=== PATIENT | male | born 1955 | race African-American/Black ===

== ENCOUNTER 2016-06-26 09:39 | Inpatient (IN) ==
[2016-06-26] MEDS ORDERED: DUONEB (A & A) INH ONE (10:00)
[2016-06-26] MEDS ORDERED: SOLU-MEDROL IV ONE (10:00)
[2016-06-26 10:17] LABS: MANUAL DIFF NEEDED? NO
[2016-06-26 10:33] LABS: ALLEN TEST YES; BE 19.8 mmoll (-3.0-3.0); BLOOD TYPE ARTERIAL; DRAW SITE R RADIAL; METHB 2.1 % (0.0-1.5); O2(CT) 9.7 mL/dL (15.0-23.0); PO2(98.6) 285 mmHg (60-100); SAMPLE BLOOD; SAO2 99.1 % (95.0-100.0); THB 6.6 g/dL (11.5-17.4); pH(98.6) 7.51 (7.35-7.45)
[2016-06-26 10:35] LABS: MODALITY NRB
[2016-06-26 10:36] LABS: PCO2(98.6) 56 mmHg (35-45)
[2016-06-26 10:43] LABS: BASO% 0.1 % (0.0-0.8); EOS# 0.13 X1000 (0.0-0.7); EOS% 1.2 % (0.0-10.0); HEMATOCRIT 21.8 % (42.0-52.0); HEMOGLOBIN 6.6 g/dL (14.0-18.0); IMM GRAN# 0.07 X1000 (0.0-0.04); IMM GRAN% 0.7 % (0.0-0.5); LYMPH# 1.35 X1000 (1.2-3.4); LYMPH% 12.9 % (20.5-51.1); MCH 31.4 PG (27-31); MCHC 30.3 g/dL (33-37); MCV 103.8 FL (81-99); MONO% 11.5 % (1.7-9.3); MPV 9.1 FL (7.4-10.4); NEUT% 73.6 % (42.2-75.2); PLT 277 X1000 (130-400)
[2016-06-26 10:44] LABS: INR 1.19; PROTIME 12.6 Seconds (9.2-11.7); PTT 30.4 Seconds (22.0-36.0)
[2016-06-26 10:49] LABS: ALBUMIN 2.9 g/dL (3.5-5.0); CALCIUM 8.6 mg/dL (8.8-10.2); POTASSIUM 4.4 mmol/L (3.5-5.1); TOTAL BILIRUBIN 0.39 mg/dL (0.20-1.00); TOTAL PROTEIN 7.7 g/dL (6.3-8.3)
--- NOTE | 2016-06-26 11:15 | PROVIDER DOCUMENTATION ---
This chart was entered by Zara Ni Scribe, acting as scribe for Mary Domingo MD. HPI-Respiratory General - General Stated Complaint: lethargic, SOB Time Seen by Provider: 06/26/16 10:01 Source: family (ex ) Allergies/Adverse Reactions: Patient Allergies Allergy/AdvReac Type Severity Reaction Status Date / Time No Known Allergies Allergy Verified 06/26/16 10:13 Home Medications: Home Medication List Medication Instructions Recorded Confirmed Last Taken Type Allopurinol [Zyloprim] 200 mg PO DAILY 06/26/16 06/26/16 Unknown History Alprazolam [Xanax] 0.5 mg PO HS 06/26/16 06/26/16 Unknown History Calcium Acetate [Phoslo] 667 mg PO TID CC 06/26/16 06/26/16 Unknown History Carvedilol [Coreg] 12.5 mg PO BID 06/26/16 06/26/16 Unknown History Clonidine [Catapres] 0.2 mg PO BID 06/26/16 06/26/16 Unknown History Cyclobenzaprine [Flexeril] 10 mg PO TID 06/26/16 06/26/16 Unknown History Doxepin [Sinequan] 25 mg PO BID 06/26/16 06/26/16 Unknown History Esomeprazole [Nexium] 40 mg PO DAILY 06/26/16 06/26/16 Unknown History Furosemide [Lasix] 40 mg PO BID 06/26/16 06/26/16 Unknown History Meloxicam [Mobic] 15 mg PO DAILY 06/26/16 06/26/16 Unknown History Minoxidil 25 mg PO BID 06/26/16 06/26/16 Unknown History Sodium Bicarbonate 1,300 mg PO BID 06/26/16 06/26/16 Unknown History - History of Present Illness-Resp Nature of Presenting Problem: Pt is 61 y/o M presents to the ED with SOB. Pt's exwife states Pt had kidney cancer and had both kidneys removed. Pt's ex states he is on dialysis. Pt' s ex states was admitted to [facility] for one week recently. Pt's ex states SOB for 2 days. Quality of Pain: reports: tightness Severity in ED: reports: mild Onset/Duration: reports: 2 days ago Timing: reports: still present Exposure: reports: unknown cause Cough Quality/Degree: reports: no cough Episode Frequency: occasional episodes Current Respiratory Medication Therapy: Initiated see nurses note Modifying Factors: improves with: nothing Associated Symptoms: reports: muscle/bodyaches, shortness of breath, other ( lethargic). denies: chest pain/soreness, cough, dizziness, earache, facial pain , fever/chills, flu-like symptoms, headache, heart racing, hurts to breathe, hyperventilating, lightheadedness, nasal congestion, nasal drainage, sinus pain , short of breath, sore throat, sweaty, wheezing Similar Symptoms Previously?: Yes Recently seen or treated by another doctor?: Yes Review of Systems - Adult - REVIEW OF SYSTEMS - ADULT Constitutional: denies: chills, fever Eyes: denies: blurred vision, double vision Ears, Nose, Mouth & Throat: denies: ear pain, nose pain, throat pain Cardiovascular: reports: irregular heart rate (tachy). denies: chest pain, heart murmur Respiratory: reports: shortness of breath. denies: cough, wheezing Gastrointestinal: denies: abdominal pain, diarrhea, poor appetite, vomiting Genitourinary: denies: dysuria, hematuria Musculoskeletal: reports: muscle aches, muscle weakness. denies: bone pain, joint pain, neck pain Integumentary: denies: hives, itching, rash Neurological: denies: dizziness/vertigo, headache/migraines Psychiatric: reports: no symptoms reported Endocrine: reports: no symptoms reported Hematologic/Lymphatic: reports: no symptoms reported Allergic/Immunologic: reports: no symptoms reported All Other Systems: Reviewed and Negative Past History - Adult - PAST MEDICAL HISTORY-ADULT Review of Records: reports: Nursing Assessment Review, Medications Reviewed, Social history reviewed & non-contributory. Major Childhood Illnesses: reports: denies history Cardiovascular: reports: denies history Respiratory: reports: denies history Gastrointestinal: reports: denies history Obstetrical/Gynecological: reports: denies history Genitourinary: reports: cancer (kidney), dialysis, kidney disease Musculoskeletal: reports: denies history Neurological: reports: denies history Endocrine/Immune: reports: denies history Other Conditions: reports: denies history - PRIOR SURGERIES/PROCEDURES Surgical/Procedure History: reports: reviewed, not pertinent - IMMUNIZATION STATUS Childhood Immunizations: See Nurse Assessment Flu Vaccine: See Nurse Assessment - FAMILY HISTORY Family History: reviewed, not pertinent - SOCIAL HISTORY Smoking: denies Substance Use: denies Living Situation: family Physical Exam-General - PHYSICAL EXAM-ADULT Initial Vital Signs Reviewed: Yes - CONSTITUTIONAL General Appearance: mild distress, lethargic, slow to respond. negative: appears well (ill in appearance) - EYES Eyes: PERRL/EOMI, pink conjunctivae - HEAD, EARS, NOSE, MOUTH & THROAT HENMT: normocephalic/atraumatic, moist mucous membranes, normal ENT inspection, TMs normal, pharynx normal - NECK Neck: non-tender, full range of motion, supple, normal inspection - RESPIRATORY Respiratory: chest non-tender, no pleuratic chest pain, no respiratory distress , decreased breath sounds, retractions, increased rate - CARDIOVASCULAR Cardiovascular: normal peripheral pulses, no edema, no gallop, no JVD, no murmur , tachycardia - GASTROINTESTINAL (ABDOMEN) Abdominal Exam: normal bowel sounds, non tender, soft, no organomegaly, no pulsatile mass - LYMPHATIC Lymphatic: no adenopathy - MUSCULOSKELETAL Back Exam: normal inspection, no CVA tenderness, no vertebral tenderness Extremity: normal range of motion, non-tender, normal gait, normal inspection, no pedal edema, no calf tenderness, normal capillary refill, pelvis stable - SKIN Integumentary: normal color, normal turgor, warm/dry - NEUROLOGIC Neurologic: grossly normal - PSYCHIATRIC Psych/Mental Status: other (lethargic) Progress - PLAN OF CARE/RESULTS Progress/Plan/Lab Results: Vital Signs - 8 hr 06/26/16 10:04 06/26/16 10:20 06/26/16 11:59 Temperature 98.0 F Pulse Rate 107 H 102 H 107 H Respiratory Rate 26 H 25 H 19 Blood Pressure 109/63 98/67 O2 Sat by Pulse Oximetry 96 100 06/26/16 12:00 Temperature Pulse Rate 107 H Respiratory Rate 24 Blood Pressure 114/72 O2 Sat by Pulse Oximetry 97 Laboratory Results - last 24 hr 06/26/16 06/26/16 06/26/16 10:05 10:05 10:05 WBC 10.44 RBC 2.10 L Hgb 6.6 L Hct 21.8 L MCV 103.8 H MCH 31.4 H MCHC 30.3 L RDW Std Deviation 15.4 H Plt Count 277 MPV 9.1 Immature Gran % (Auto) 0.7 H Neut % (Auto) 73.6 Lymph % (Auto) 12.9 L Tama % (Auto) 11.5 H Eos % (Auto) 1.2 Baso % (Auto) 0.1 Immature Gran # (Auto) 0.07 H Neut # (Auto) 7.68 H Lymph # (Auto) 1.35 Tama # (Auto) 1.20 H Eos # (Auto) 0.13 Baso # (Auto) 0.01 PT INR PTT (Actin FS) D-Dimer 1.89 H Specimen Type Sample Site pH pCO2 pO2 HCO3 Base Excess Oxyhemoglobin ABG O2 Sat (Calculated) ABG O2 Saturation ABG Carboxyhemoglobin ABG Methemoglobin Garland Test A-a O2 Difference Total Hemoglobin Lactate Liter Flow Blood Gas Modality FiO2 % Sodium 140 Potassium 4.4 Chloride 91 L Carbon Dioxide 37 H Anion Gap 12 BUN 25 H Creatinine 5.8 H Estimated GFR/1.73 m2 12 BUN/Creatinine Ratio 4 Glucose 127 H Calculated Osmolality 285 Calcium 8.6 L Magnesium 2.0 Total Bilirubin 0.39 AST 13 ALT 8 L Alkaline Phosphatase 116 Creatine Kinase 76 Troponin T Iau-L-Vbglpmgjtcg Pept Total Protein 7.7 Albumin 2.9 L Globulin 4.8 Albumin/Globulin Ratio 0.6 Plasma Lactate 06/26/16 06/26/16 06/26/16 10:05 10:05 10:05 WBC RBC Hgb Hct MCV MCH MCHC RDW Std Deviation Plt Count MPV Immature Gran % (Auto) Neut % (Auto) Lymph % (Auto) Tama % (Auto) Eos % (Auto) Baso % (Auto) Immature Gran # (Auto) Neut # (Auto) Lymph # (Auto) Tama # (Auto) Eos # (Auto) Baso # (Auto) PT 12.6 H INR 1.19 PTT (Actin FS) 30.4 D-Dimer Specimen Type Sample Site pH pCO2 pO2 HCO3 Base Excess Oxyhemoglobin ABG O2 Sat (Calculated) ABG O2 Saturation ABG Carboxyhemoglobin ABG Methemoglobin Garland Test A-a O2 Difference Total Hemoglobin Lactate Liter Flow Blood Gas Modality FiO2 % Sodium Potassium Chloride Carbon Dioxide Anion Gap BUN Creatinine Estimated GFR/1.73 m2 BUN/Creatinine Ratio Glucose Calculated Osmolality Calcium Magnesium Total Bilirubin AST ALT Alkaline Phosphatase Creatine Kinase Troponin T 0.387 H* Llp-Y-Eavskczgfar Pept 81528 H Total Protein Albumin Globulin Albumin/Globulin Ratio Plasma Lactate 06/26/16 06/26/16 10:05 10:20 WBC RBC Hgb Hct MCV MCH MCHC RDW Std Deviation Plt Count MPV Immature Gran % (Auto) Neut % (Auto) Lymph % (Auto) Tama % (Auto) Eos % (Auto) Baso % (Auto) Immature Gran # (Auto) Neut # (Auto) Lymph # (Auto) Tama # (Auto) Eos # (Auto) Baso # (Auto) PT INR PTT (Actin FS) D-Dimer Specimen Type ARTERIAL Sample Site R RADIAL pH 7.51 H pCO2 56 H* pO2 285 H HCO3 40.4 H Base Excess 19.8 H Oxyhemoglobin 95.7 ABG O2 Sat (Calculated) 9.7 L ABG O2 Saturation 99.1 ABG Carboxyhemoglobin 1.30 ABG Methemoglobin 2.1 H Garland Test YES A-a O2 Difference 358.0 Total Hemoglobin 6.6 L Lactate 0.70 Liter Flow 15.0 Blood Gas Modality NRB FiO2 % 100.0 Sodium Potassium Chloride Carbon Dioxide Anion Gap BUN Creatinine Estimated GFR/1.73 m2 BUN/Creatinine Ratio Glucose Calculated Osmolality Calcium Magnesium Total Bilirubin AST ALT Alkaline Phosphatase Creatine Kinase Troponin T Aou-V-Qklwgegdqcf Pept Total Protein Albumin Globulin Albumin/Globulin Ratio Plasma Lactate 0.9 Orders Category Date Time Status Cardiac Monitoring DIRECTED Care 06/26/16 10:00 Active Oxygen Therapy- ED Nursing DIRECTED Care 06/26/16 10:00 Active Saline Loc NOW Care 06/26/16 10:00 Active ABD/PELVIS/PULM ARTERIES [CT] Stat Exams 06/26/16 10:00 Draft CHEST-PORTABLE [RAD] Stat Exams 06/26/16 10:00 Completed ABG [RESP] Routine Lab 06/26/16 10:20 Completed BLOOD CULTURE [BLDCUL] Stat Lab 06/26/16 10:08 Results CBC WITH ELECTRONIC DIFF [HEME] Stat Lab 06/26/16 10:05 Completed CK PROFILE [SP CHEM] Stat Lab 06/26/16 10:05 Completed COMPREHENSIVE METABOLIC PANEL [CHEM] Stat Lab 06/26/16 10:05 Completed D-DIMER [CHEM] Stat Lab 06/26/16 10:05 Completed FERRITIN Stat Lab 06/26/16 12:10 Received FOLATE Stat Lab 06/26/16 12:10 Received LACTATE, PLASMA [CHEM] Stat Lab 06/26/16 10:05 Completed MAGNESIUM [CHEM] Stat Lab 06/26/16 10:05 Completed PRO B-NATRIURETIC PEPTIDE Stat Lab 06/26/16 10:05 Completed PROTIME WITH INR [COAG] Stat Lab 06/26/16 10:05 Completed PTT [COAG] Stat Lab 06/26/16 10:05 Completed TOTAL IRON [CHEM] Stat Lab 06/26/16 12:10 Received TROPONIN T Stat Lab 06/26/16 10:05 Completed TYPE & SCREEN [BBK] Stat Lab 06/26/16 10:05 Results UIBC W TOTAL IRON [CHEM] Stat Lab 06/26/16 12:10 Received VITAMIN B12 Routine Lab 06/26/16 12:10 Received Albuterol 2.5MG/Ipratrop 0.5MG [Duoneb (A & A)] Med 06/26/16 10:00 Discontinued 3 ml INH NOW ONE Methylprednisolone Sod Succ [Solu-Medrol] Med 06/26/16 10:00 Discontinued 125 mg IV NOW ONE Aerosol Treatments Routine Oth 06/26/16 10:02 Completed Aerosol Treatments Stat Oth 06/26/16 10:02 Completed EKG [EKG] Stat Ther 06/26/16 10:00 Ordered Result Diagrams: 06/26/16 10:05 06/26/16 10:05 - EKG 1 Time of EKG reading by physician:: 10:34 EKG Read and Signed by:: Mary Domingo EKG Interpretation (*Must complete 3 of following elements*): Abnormal (lateral infarct, age undetermined) Rate: 106 Rhythm: sinus tachycardia Comments: RBBB; left anterior fascicular block; bifascicular block - XRAY 1 XRAY: Bilateral XRAY Study: Chest Impression: Abnormal (minus pneumonia; bilateral pleural effusions, largest on the right) XRAY Interpretation: bilateral consolidations suggesting pulmonary edema plus - CT/MRI 1 CT Study: Abdomen, Pelvis, other (pulm arteries) Impression: Abnormal (mets to lungs and liver; renal cancer) - CONSULTS/PCP/HOSPITALIST Notification #1 *Consult/PCP/Hospitalist*: Dr. Carrasco Time Discussed: 11:55 (Dr. Carrasco accepted admit ) Reason/Comments: Dr. Domingo consulted with Dr. Carrasco about admit of PT Consult Disposition: Admit Departure - Departure Time of Disposition Decision: 11:05 DIAGNOSIS: SOB (shortness of breath), Renal disease, Pleural effusion Anemia Qualifiers: Anemia type: unspecified type Qualified Code(s): D64.9 - Anemia, unspecified Renal cancer Qualifiers: Laterality: unspecified laterality Qualified Code(s): C64.9 - Malignant neoplasm of unspecified kidney, except renal pelvis Disposition: ADMITTED INPATIENT 09 Certified Medical Emergency: Emergent Condition: Stable Additional Freetext Instructions: ED Follow Up Instructions: You have been treated by a care provider in the Emergency Department. These instructions are being provided to you so you can have an understanding of how to care for yourself upon discharge. Upon discharge from the Emergency Department, you are responsible for making arrangements for follow-up care by a physician of your choice. Take all prescribed medications as directed. Return to the Emergency Department immediately for any new or worsening symptoms. You may call the Physician Referral phone number at [phone] to obtain a list of Physicians who are taking new patients. Referrals and Follow-Ups: None,PCP [Primary Care Provider] - This chart was documented by the indicated scribe, (Zara Ni Scribe) and accurately reflects the services I performed and decisions made by me, Mary Domingo MD, as attested by the provider's signature.
--- NOTE | 2016-06-26 11:21 | Diag Imaging Result Document ---
PROCEDURE NAME: CHEST-PORTABLE - 06/26/2016 SINGLE FRONTAL RADIOGRAPH OF THE CHEST: COMPARISON: None available. FINDINGS: Inspiration is suboptimal. There are bilateral pleural effusions. The effusion on the right is largest and appears to be at least moderate in size. Bilateral central and bibasilar infiltrates are noted indicating pulmonary edema and pulmonary venous congestion plus or minus pneumonia. Cardiac silhouette is somewhat obscured by the overlying infiltrates. IMPRESSION: 1. Bilateral consolidations suggesting pulmonary edema plus or minus pneumonia. 2. Bilateral pleural effusions, largest on the right.
--- NOTE | 2016-06-26 12:24 | Diag Imaging Result Document ---
PROCEDURE NAME: ABD/PELVIS/PULM ARTERIES - 06/26/2016 CT PULMONARY ANGIOGRAM WITH INTRAVENOUS CONTRAST: A CT dose reduction protocol was used. COMPARISON: 04/28/2013. FINDINGS: Axial CT images of the chest were obtained after administering intravenous contrast. Coronal MIP images were generated. There is no pulmonary embolism. There is significant cardiomegaly and advanced calcified coronary artery disease. There are numerous large pulmonary masses bilaterally measuring up to 2.8 cm. There is a large loculated fluid collection at the right lung base measuring 19 x 13 cm. This contains some enhancing masses and the right lower lobe. The right lower lobe is collapsed. Otherwise, no significant infiltrates throughout the lungs. There is mild mediastinal adenopathy at the peritracheal and precarinal locations. Bony structures are intact without suspicious findings. IMPRESSION: 1. Numerous pulmonary metastases. 2. Large loculated pleural collection, probably stable ligament effusion at the right lung base. 3. Pleural metastases. CT ABDOMEN AND PELVIS WITH INTRAVENOUS CONTRAST: A CT dose reduction protocol was used. COMPARISON: None. FINDINGS: There has been bilateral nephrectomy. There has also been prostatectomy. There is a small retroperitoneal mass at the right side measuring 3.5 x 2.8 cm, near the right nephrectomy bed. There is also an implant at the posterior right lobe of the liver measuring 3.2 cm. No bowel obstruction or inflammation. Urinary bladder and rectum are normal. Bony structures are intact. IMPRESSION: Bilateral nephrectomies. A mass in the posterior right lobe of the liver and right nephrectomy bed. MTDD
--- NOTE | 2016-06-26 12:39 | EKG Report ---
Test Performed on : 06/26/2016 10:34:29 AM Test Reason : Chest Pain Blood Pressure : / mmHG Vent. Rate : 106 BPM Atrial Rate : 106 BPM P-R Int : 204 ms QRS Dur : 158 ms QT Int : 440 ms P-R-T Axes : -18 -82 090 degrees QTc Int : 584 ms Sinus tachycardia. Right bundle branch block Left anterior fascicular block Bifascicular block Lateral infarct , age undetermined Abnormal ECG When compared with ECG of 26-JUN-2016 09:48, (Unconfirmed) Sinus rhythm. has replaced Wide QRS rhythm. Unconfirmed Result
--- NOTE | 2016-06-26 12:39 | EKG Report ---
Test Performed on : 06/26/2016 09:48:25 AM Test Reason : Chest Pain Blood Pressure : / mmHG Vent. Rate : 108 BPM Atrial Rate : 000 BPM P-R Int : 000 ms QRS Dur : 156 ms QT Int : 440 ms P-R-T Axes : 000 -77 082 degrees QTc Int : 589 ms Wide QRS rhythm. Right bundle branch block Left anterior fascicular block Bifascicular block T wave abnormality, consider lateral ischemia Abnormal ECG When compared with ECG of 26-JUN-2016 09:47, (Unconfirmed) No significant change was found Unconfirmed Result
[2016-06-26 13:11] LABS: IRON SATURATION 29 %; TIBC 150 ug/dL; TOTAL IRON 43 ug/dL (53-167); UNBOUND IRON 107 ug/dL (112-346)
[2016-06-26] MEDS ORDERED: DUONEB (A & A) INH PRN (13:29)
[2016-06-26] MEDS ORDERED: VANCOMYCIN IV PER PHARMACY MISC SCH (13:30)
[2016-06-26] MEDS ORDERED: VANCOMYCIN 1 GM/NS 1 GM/250 ML IVPB IV ONE (14:00)
[2016-06-26] MEDS: VANCOMYCIN 1 GM/NS 1 GM/250 ML IVPB IV SCH (14:00)
--- NOTE | 2016-06-26 14:20 | Diag Imaging Result Document ---
PROCEDURE NAME: HEAD W/O CONTRAST - 06/26/[address]: A CT dose reduction protocol was used. COMPARISON: None. FINDINGS: The ventricles and sulci are normal in size and contour. No intracranial mass or hemorrhage. There is some mild periventricular white matter chronic microvascular disease. There is sinusitis of the sphenoid sinuses. The mastoids and middle ears are clear. The skull is intact. IMPRESSION: 1. Mild chronic microvascular disease. 2. [facility]henoid sinusitis. [facility]
--- NOTE | 2016-06-26 14:26 | HISTORY AND PHYSICAL ---
CHIEF COMPLAINT: Lethargy and shortness of breath. HISTORY OF PRESENT ILLNESS: Mr. Arriaga is an unfortunate 61-year-old male with a history of metastatic renal cell carcinoma with newly diagnosed metastases to the lungs. He also has a history of prostate cancer and has had bilateral nephrectomies and is on hemodialysis followed by Dr. Pena. Over the past 3 days he has become more lethargic per his 's report. The patient has been having increased labored breathing. The patient is a poor historian at this time. History is obtained per discussions with his and chart review. Increased lethargy and shortness of breath brought the patient to the ER and in the ER he had a CT of the chest, abdomen and pelvis done which revealed numerous pulmonary metastases. There was also a large loculated pleural collection. There was a large loculated pleural collection probably stable malignant effusion in the right lung base and pleural metastasis. The abdomen showed bilateral nephrectomies and a mass of the posterior right lobe of the liver and right nephrectomy bed. His laboratory data reveals fairly profound macrocytic anemia, hypercapnic respiratory failure and a troponin elevation as well as a proBNP elevation. On physical exam, the patient is lethargic and has increased labored breathing. He does follow commands and is oriented. Given the constellation of his symptoms, we are going to admit him to the ICU with multiple subspecialty consultations. PAST MEDICAL HISTORY: 1. Metastatic renal cell carcinoma with mets to the lungs and nephrectomy bed. 2. Prostate cancer. 3. ESRD on hemodialysis. 4. Hypertension. 5. GERD. 6. Anxiety and chronic pain. SURGICAL HISTORY: Bilateral nephrectomies, prostatectomy, partial bowel resection secondary to polyps which the patient's family reports were benign, left upper arm fistula. SOCIAL HISTORY: No history of tobacco, alcohol or drug use. His family is at the bedside. FAMILY HISTORY: Noncontributory. REVIEW OF SYSTEMS: A 14 point review of systems obtained and found to be negative with the exception of the HPI. PHYSICAL EXAMINATION: VITAL SIGNS: Blood pressure is 114/72, heart rate 107, respiratory rate 24, O2 saturation 97% on 5 L of nasal cannula. Temperature is 98 degrees. GENERAL: This is a chronically ill-appearing 61-year-old male lying in hospital bed lethargic but in no acute distress. NEUROLOGIC: The patient is somewhat somnolent but opens his eyes to verbal stimulus. His speech pattern is a bit broken and slurred but he answers orientation questions correctly. He follows commands with global weakness but no acute focal deficits. HEENT: Head is atraumatic, normocephalic. His pupils are equal, round, reactive to light. Oral mucosa is dry. Trachea is midline. No JVD. CHEST: Coarse breath sounds heard over the right lung base. LUNGS: Essentially clear to auscultation. Mild increased work of breathing noted. CV: Tachy and regular. S1, S2 is noted. GI: Epigastric tenderness to palpation. Belly is soft and nondistended. Bowel sounds are positive. EXTREMITIES: Trace edema. Pulses palpable but diminished bilaterally. DIAGNOSTIC DATA: CT of the chest, abdomen and pelvis please see HPI. Chest x- ray shows bilateral effusions and pulmonary edema. EKG shows sinus rhythm with a bifascicular block. WBC 10.4, hemoglobin 6.6, hematocrit 21.8, platelet count 277,000. PT 12.6, INR 1.19. ABG on 100% non- rebreather pH 7.51, CO2 56, O2 285, bicarb 40.4. Sodium 140, potassium 4.4, chloride 91, CO2 37. Anion gap 12. BUN 25, creatinine 5.8, glucose 127, calcium 8.6, magnesium 2. Iron 43, TIBC 150%, sat 29, saturating iron binding 107, ferritin 2669. Bilirubin 0.39, AST 13, ALT 8, alkaline phosphatase 116. CK 76, troponin 0.387. ProBNP 11832. Albumin 2.9, lactate is 0.9. B12 353. Folate 5.1. ASSESSMENT/PLAN: 1. Acute hypoxic and hypercapnic respiratory failure: Secondary to likely malignant pleural effusion and lung metastases. He will need a pulmonary consult as well as Nephrology for hemodialysis. Blood cultures have been obtained and we are going to start broad-spectrum antibiotics to include anaerobic coverage for postobstructive pneumonia. We will also add vancomycin. Continue oxygen, ABGs and chest x-rays daily. 2. Metabolic encephalopathy: Likely secondary to increased work of breathing, hypoxia and hypercapnia but would not rule out mets to the brain. We are going to check a CT and MRI of the brain and we will also continue to treat his underlying metabolic issues. 3. Metastatic renal cell carcinoma with mets to the lungs and malignant pleural effusion: Pulmonary has been consulted. He may need a thoracentesis. We will also consult his check and transfer beader, Dr. Taylor Haq. We have added broad-spectrum antibiotics. We will continue aggressive pulmonary toilet. 4. ESRD on hemodialysis: Dr. Pena has been consulted for ESRD management as well as assistance with medical management. 5. Macrocytic anemia: Iron studies show that he is folate deficient, iron deficient and borderline B12 deficient. We are going to transfuse him 2 units of PRBCs now. We are also going to start folate intravenous 1 mg daily. 6. Elevated cardiac enzymes with probable congestive heart failure: Patient denies any overt chest pain. He does have pulmonary edema so he will need a heart failure workup. We are going to check an echocardiogram and trend his cardiac enzymes. We will also consult Cardiology. 7. Severe protein calorie malnutrition: We will consult Dietary. He may need dietary supplementation. 8. Hypertension: Medications are on hold for now as he is borderline hypotensive. 9. DVT prophylaxis will be provided with heparin once head CT is deemed to be negative. Further recommendations to follow. Dictated by GRICELDA Cook for Jone Carrasco MD cc: GRICELDA Cook MD [facility]
[2016-06-26] MEDS: DUONEB (A & A) INH SCH ×3 (14:30→23:11)
[2016-06-26] MEDS ORDERED: HEPARIN IV PRN (14:59)
[2016-06-26] MEDS ORDERED: NS 2,000 ML MISC PRN (14:59)
[2016-06-26] MEDS ORDERED: TIGHT: 0.2 ML/HR MISC PRN (14:59)
[2016-06-26 16:28] LABS: HEMOGLOBIN A1C 4.9 % (4.8-6.0)
--- NOTE | 2016-06-26 18:15 | ECHO REPORT ---
ORDER DATE: 06/26/2016 MEASUREMENTS: Left ventricular end-diastolic diameter 4.6, posterior wall thickness 2.0, left atrium 4.6, aortic root 3.4. SUMMARY: 1. Technically difficult study due to limited acoustic window quality. 2. Minimal sclerosis of aortic valve demonstrated with adequate aortic valve opening evident. Peak instantaneous gradient across aortic valve by Doppler is 23 mmHg with a mean gradient of 12 mmHg. Mild mitral annular calcification is demonstrated. The tricuspid valve is without structural abnormality with mild tricuspid regurgitation. Pulmonic valve is without structural abnormality with trace pulmonic insufficiency. Estimated systolic PA pressure by Doppler is 55-60 mmHg. 3. Normal left ventricular chamber size with moderate to severe concentric left hypertrophy is demonstrated. Estimated left ejection fraction is 65%-70%. No regional wall motion abnormalities are evident. Left atrium is mildly enlarged. Right atrium and right ventricle are of normal size with grossly preserved right ventricular systolic performance. Mild gradient in left ventricular outflow tract of about 10 mmHg demonstrated at rest. 4. No pericardial effusion. 5. Appearance of inferior vena cava suggests normal central venous pressure. CONCLUSIONS: 1. Technically difficult study. 2. Very mild aortic valve sclerosis without stenosis. 3. Mild tricuspid regurgitation with moderate pulmonary hypertension by Doppler. 4. Moderate to severe concentric left hypertrophy with estimated left ejection fraction 65%-70%. 5. Mild systolic gradient in left ventricular outflow tract of 10 mmHg at rest. 6. Mild left atrial enlargement. cc: MD Aung Blevins CRNP
[2016-06-26] MEDS: ZOSYN 3.375 GM/NS 3.375 GM/50 ML IVPB IV SCH (19:35)
[2016-06-26] MEDS: FOLIC ACID 1 MG in NS 50.0 ML IV SCH (20:46)
[2016-06-26] MEDS ORDERED: XANAX PO ONE (21:00)
[2016-06-26] MEDS ORDERED: SODIUM BICARBONATE PO SCH (21:30)
[2016-06-26] MEDS ORDERED: TUMS PO ONE (21:31)
[2016-06-27] MEDS: ZOSYN 3.375 GM/NS 3.375 GM/50 ML IVPB IV SCH ×2 (00:33→06:18)
[2016-06-27] MEDS: DUONEB (A & A) INH SCH ×6 (03:00→23:13)
[2016-06-27 07:55] LABS: HEMATOCRIT 25.4 % (42.0-52.0); HEMOGLOBIN 7.8 g/dL (14.0-18.0); MCH 30.5 PG (27-31); MCHC 30.7 g/dL (33-37); MCV 99.2 FL (81-99); MPV 9.7 FL (7.4-10.4); RBC 2.56 XMIL (4.7-6.1)
[2016-06-27 07:56] LABS: CALCIUM 9.6 mg/dL (8.8-10.2); POTASSIUM 4.5 mmol/L (3.5-5.1)
[2016-06-27 11:16] LABS: INR 1.19; PROTIME 12.6 Seconds (9.2-11.7); PTT 29.4 Seconds (22.0-36.0)
--- NOTE | 2016-06-27 12:37 | CONSULTATION ---
DATE OF CONSULTATION: 06/27/2016 REFERRING PHYSICIAN: Dr. Jone Carrasco. CHIEF COMPLAINT: Shortness of breath and lethargy. HISTORY OF PRESENT ILLNESS: This is 60-year-old male with a history of metastatic renal cell carcinoma and has been recently diagnosed with metastasis to the lungs. Upon assessment, the patient had a complaint of shortness of breath. He has O2 at 4L per nasal cannula with an O2 saturation of 100%. PAST MEDICAL HISTORY: Metastatic renal cell carcinoma with metastasis to the lungs. Prostate cancer. End-stage renal disease, on hemodialysis. GERD. Anxiety. Chronic pain. Hypertension. SURGICAL HISTORY: Bilateral nephrectomies. Prostatectomy. Partial bowel resection secondary to polyps. SOCIAL HISTORY: Denies tobacco, alcohol, and drug use. Family is at bedside. FAMILY HISTORY: Noncontributory. REVIEW OF SYSTEMS: A 10-point review of systems was obtained and the pertinents as listed in the HPI. Otherwise, noncontributory. PHYSICAL EXAMINATION: Vital Signs: Temperature 98.2 degrees, pulse rate 93, respiratory rate 20, blood pressure 161/93, O2 saturation 100% with O2 at 4L/minute. General: Lethargic. No acute distress. Neurologic: Opens eyes and follows commands. Oriented x3. No acute focal deficits. HEENT: Head is atraumatic, normocephalic. Pupils equal, round and reactive to light. Mucosa is pink, warm, dry. Trachea midline. Chest: Coarse breath sounds bilaterally. Lungs: Clear per auscultation. Nonlabored. Cardiovascular: Tachycardia with S1 and S2 auscultated. Gastrointestinal: Bowel sounds present. Soft and nondistended. Extremities: Edema +1. Pulses palpable. DIAGNOSTIC DATA: Head CT: The impression showed mild chronic microvascular disease and sphenoid sinusitis. Echocardiogram: Impression was technically difficulty study. Very mild aortic valve sclerosis without stenosis. Mild tricuspid regurgitation with moderate pulmonary hypertension by Doppler. Moderate to severe concentric left hypertrophy with an estimated left ejection fraction 65% to 70%. Mild systolic gradient in left ventricular outflow tract of 10 mmHg at rest. Mild left atrial enlargement. Chest x-ray: The impression showed bilateral consolidation suggestive of pulmonary edema plus or minus pneumonia. Bilateral pleural effusions, largest on the right. Laboratory data: White blood cells 12.85, red blood cells 2.56, hemoglobin 7.8, hematocrit 25.4, MCV 99.2, MCHC 30.7, RDW standard deviation 18.4. PT 12.6, INR 1.19, PTT 29.4. Sodium 137, potassium 4.5, chloride 94, carbon dioxide 31, anion gap 12, BUN 28, creatinine 5.0, glucose 124. Troponin T 0.279 and proBNP 24,477. ASSESSMENT AND PLAN: 1. Hypoxia with hypercapnia. Continue oxygen and monitor arterial blood gas. 2. End-stage renal disease. Continue current treatment with dialysis. 3. Hypertension. Continue current treatment with regular medication. 4. Gastroesophageal reflux disease. Continue gastrointestinal prophylaxis. 5. Anemia. Continue to monitor and treat accordingly. 6. Continue deep vein thrombosis prophylaxis with heparin. Thank you for the courtesy of this consult. cc: MD Jone Dixon MD
--- NOTE | 2016-06-27 12:52 | PROGRESS NOTE ---
DATE: 06/27/2016 SUBJECTIVE: Today, Mr. Arriaga referred to be doing a whole lot better. He got 2 units of PRBCs during dialysis yesterday. OBJECTIVE: Vital signs: Blood pressure is 151/93, pulse 93, respirations 15, temperature 98.2. General: Mr. Arriaga is a 61-year-old male who was in bed and seems to not be in any remarkable distress. HEENT: Mucosa is pink. Anicteric and acyanotic. Neck: Supple. There is some mild JVD, as well. Chest: Air entry is bilaterally reduced. There are a few bibasilar crepitations. Cardiovascular: Regular rate and rhythm. Abdomen: Soft. Distended but nontender. Extremities: 1+ pedal edema. LABORATORY DATA: WBC 12.85, hemoglobin 7.8, platelet count 282. Chemistry reviewed, consistent with end-stage renal disease. IMAGING: CT scan of the head showed mild chronic microvascular disease and sphenoidal sinusitis. An echocardiogram done yesterday shows an ejection fraction of 65% to 70%, mild gradient of outflow tract of 10. There is a moderate to severe concentric left ventricular hypertrophy. A CT scan of the chest, abdomen, and pelvis shows numerous pulmonary metastases , large loculated pleural collection, probably stable, malignant effusion at the right lung base, pleural metastasis. Abdomen shows bilateral nephrectomies, a mass in the posterior right lobe of the liver and right nephrectomy bed. ASSESSMENT: 1. Acute hypoxemic respiratory failure. I think this is multifactorial including pleural effusions and lung metastasis. 2. History of renal cell carcinoma with bilateral nephrectomy. The patient was recently seen for a mass in the renal bed which was biopsied, and it showed recurrence of the renal cell. A CT scan has shown metastatic disease in both lungs. 3. End-stage renal disease. The patient is on hemodialysis. 4. Macrocytic anemia with very low folate. We are going to supplement this. 5. Protein calorie malnutrition noted. 6. Hypertension, stable. 7. 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 Will continue addressing very aggressively blood pressure. 8. Right large pleural effusion. PLAN: The patient seems to be relatively stable. There is a very large right pleural effusion which I think is probably related to the metastatic disease. However, the patient continues to be in mild respiratory distress, and I think if we tap it, it is going to help with his lung mechanics. I therefore ordered ultrasound-guided thoracentesis of the right by IR, and we will send the fluid for studies. The patient is being also followed by Nephrology, and we have also ordered a consult for Dr. Taylor Haq who is his oncologist. cc: Jone Carrsaco MD MTDD
--- NOTE | 2016-06-27 12:54 | Diag Imaging Result Document ---
PROCEDURE NAME: CHEST-2 VIEWS - 06/27/2016 CHEST X-RAY, 2 VIEWS: COMPARISON: 06/26/2016 FINDINGS: There has been drainage of the right basilar pleural effusion. Stable cardiomegaly and pulmonary vascular congestion. Stable pulmonary nodules. There is significant improvement but some persistent infiltrate in the right lung base. No pneumothorax. IMPRESSION: Drainage of the right basilar pleural effusion. No evidence of complication.
[2016-06-27] MEDS: CATAPRES PO SCH ×2 (12:57→21:16)
[2016-06-27] MEDS: COREG PO SCH ×2 (12:57→21:17)
[2016-06-27] MEDS: LONITEN PO SCH ×2 (12:57→21:17)
--- NOTE | 2016-06-27 12:57 | Diag Imaging Result Document ---
PROCEDURE NAME: THORACENTESIS W/IMAGE GUIDANCE - 06/27/2016 ULTRASOUND GUIDED THORACENTESIS: COMPARISON: Chest CT 06/26/2016. FINDINGS: The risks and benefits of the procedure were discussed with the patient. All questions were answered. Written and verbal informed consent was obtained. Ultrasound scanning demonstrated a large pleural effusion at the right lung base. Overlying skin was prepped and draped in sterile fashion. Anesthesia was achieved with injection of 7 mL of 1% lidocaine. The thoracentesis catheter was advanced until the return of bloody pleural fluid. One liter was aspirated. The catheter was withdrawn intact. The patient reported no symptoms from the procedure. IMPRESSION: Successful and uncomplicated ultrasound-guided right-sided thoracentesis.
[2016-06-27] MEDS ORDERED: FLEXERIL PO SCH (13:00)
[2016-06-27] MEDS: ZOSYN 2.25 GM/NS 2.25 GM/50 ML IVPB IV SCH ×2 (13:54→21:12)
--- NOTE | 2016-06-27 14:36 | CONSULTATION ---
DATE OF CONSULTATION: 06/27/2016 REQUESTING PHYSICIAN: Dr. Carrasco REASON FOR CONSULTATION: Metastatic renal cell carcinoma, patient known. HISTORY OF PRESENT ILLNESS: Mr. Arriaga is a pleasant 61-year-old male who is known to us as we are currently treating him for metastatic renal cell carcinoma, who actually presented to our office on 06/26/2016 for a routine followup. Upon presentation, the patient was found to have some increased lethargy, as well as hypoxia with his O2 saturation dipping down into the 80s. The patient also had some confusion and altered mental status. Patient was found to be anemic and was evaluated and transferred to [facility]'s Emergency Department via ambulance due to his symptoms. He is now admitted into the ICU. Patient has a history of renal cell carcinoma with recent development of pulmonary metastasis and a pleural effusion. He was found to have recurrence of his renal cell carcinoma. Palliative therapy has been discussed but has yet to be started. Plan is to start pazopanib. CT done once the patient arrived to the Emergency Room shows him to have a large loculated pleural collection, probably stable effusion at the right lung base. He also has the pleural metastasis as previously mentioned. His head CT was negative for any new findings. PAST MEDICAL HISTORY: 1. Hypertension. 2. End-stage renal disease. 3. Prostate cancer. 4. Degenerative disc disease. 5. Metastatic renal cell carcinoma. 6. Colon polyps. PAST SURGICAL HISTORY: 1. Previous disc repair. 2. Partial colectomy. 3. Prostatectomy. 4. Bilateral nephrectomies. 5. Vascular access placement. SOCIAL HISTORY: Patient is . He lives with his . He denies any tobacco or illicit drug use. He does drink socially. FAMILY HISTORY: His mother is 89 and still alive, and she has heart disease and diabetes mellitus. Father at 56 from colon cancer. He also has siblings who have had prostate cancer and breast cancer. REVIEW OF SYSTEMS: As per the HPI. All else is negative or noncontributory. PHYSICAL EXAMINATION: Vital signs: Temperature 98.2, heart rate 73, respirations 15, blood pressure 161/95. O2 saturation is 100% on 4 liters nasal cannula. General: This is an male lying in the hospital bed in the ICU. He is in no acute distress. Head: Normocephalic, atraumatic. Eyes: Pupils equal, round, and reactive. Ears, nose, throat, neck, and mouth: Oral mucosa appears to be normal. Trachea is midline. Gross auditory acuity is intact. Cardiovascular: Patient has an S3 gallop. S1 and S2 also heard. No murmurs appreciated. Regular rate. Respiratory: Lungs are essentially clear to auscultation bilaterally anteriorly. Gastrointestinal: Abdomen is soft. It is protuberant. Nontender. Musculoskeletal: No obvious bony abnormalities. Extremities: No swelling of the upper extremities. Lower extremities with some trace edema. LABS AND STUDIES: Patient's white blood cells 12.85. Hemoglobin is 7.8. Hematocrit is 25.4. Platelets are 282. Sodium 137, potassium 4.5, chloride 94, CO2 31, BUN 28, creatinine 5.0, glucose 124. Head CT and CT of the chest, abdomen, and pelvis as per HPI. ASSESSMENT AND PLAN: 1. Metastatic renal cell carcinoma. Palliative therapy with Votrient has been planned but yet to be initiated. Treatment is currently on hold during the patient's acute illness. 2. Acute hypoxia and hypercapnic respiratory failure, possibly secondary to his malignant pleural effusion. He could also have some pneumonia or pulmonary edema. Cardiology has been consulted. He is currently on IV antibiotics. Pulmonology has also been consulted. Cultures have been drawn, and we will follow those. 3. Metastatic encephalopathy. Likely secondary to his hypoxia. This has improved. Continue to monitor. 4. End-stage renal disease, on hemodialysis. Management will be per Dr. Pena, Nephrology. 5. Increased cardiac enzymes. Patient has a history of congestive heart failure. Cardiology has been consulted. Management per them. Thank you for this consult and allowing us to participate in Mr. Arriaga's care while he is at [facility]. We will continue to follow along and adjust our treatment plan per his hospital course. Dictated by TAMANNA Candelario for Taylor Haq MD cc: Taylor Haq MD
--- NOTE | 2016-06-27 14:57 | CONSULTATION ---
DATE OF CONSULTATION: 06/27/2016 REASON FOR CONSULTATION: Assistance with management. He requires transfusion today. HISTORY OF PRESENT ILLNESS: Mr. Arriaga is a 61-year-old black man who is receiving dialysis every Wednesday, , and Wednesday for end-stage kidney disease. He had bilateral nephrectomies approximately [address] Gallardo[address] He did not receive any adjuvant therapy at the time. He recently had findings that were alarming for recurrent metastatic disease. He underwent a biopsy approximately 3 weeks ago that confirmed recurrence of renal cell carcinoma in the original surgical bed. The patient states that the biopsy was complicated by liver injury. He was seen in Dr. Haq's office yesterday in anticipation of initiating chemotherapy. He was referred from her office to the hospital because he was somewhat lethargic and was having some difficulty with labored breathing. His laboratory evaluation disclosed significant anemia. On this basis, he was admitted to the hospital and treated with dialysis and transfusion yesterday. Today, he states he feels well. No pain. No nausea, vomiting, or chest pain. He denies shortness of breath. No chills, fevers, etc. Because of his multiple problems, he was admitted to the intensive care unit. PAST MEDICAL HISTORY: As above. He also has reflux esophagitis and hypertension. HOME MEDICATION LIST: Esomeprazole, carvedilol, sodium bicarbonate, clonidine, alprazolam, minoxidil, meloxicam, calcium acetate, furosemide, doxepin, cyclobenzaprine, allopurinol. ALLERGIES: None. SOCIAL HISTORY: No alcohol or tobacco. His family is at the bedside. He is . FAMILY HISTORY: Noncontributory. REVIEW OF SYSTEMS: Otherwise noncontributory. PHYSICAL EXAMINATION: Vital Signs: Blood pressure 161/93, heart rate 93, respirations 15, afebrile. General: He is a middle-aged man, healthy appearing. Some increased work of breathing. No overt distress. He is able to talk without dyspnea. Skin: Warm and dry. HEENT: Conjunctivae are pink. Pupils are equal. Oropharynx is clear. Neck: Supple. Trachea is midline. Surgical scars are present. Neck veins are not distended. Heart: PMI is enlarged. Auscultation demonstrates a regular rhythm with a gallop. No murmurs, no rubs. Lungs: Have equal excursions. Breath sounds are audible bilaterally. No crackles or wheezes. Again, he does have increased work of breathing. Abdomen: Soft and nontender. He has multiple surgical scars, including bilateral nephrectomy scars, bilateral lower quadrant scars, and a midline infraumbilical scar. Bowel sounds are present. Hepatomegaly is palpable. No splenomegaly. Bowel sounds are present. No bruits. Extremities: No edema, clubbing, or cyanosis. Neurologic: Examination is nonfocal. LABORATORY DATA: Sodium 137, potassium 4.5, chloride 94, bicarbonate 31, BUN 28, creatinine 5.0. Hemoglobin 7.8. IMPRESSIONS: 1. End-stage kidney disease. His normal dialysis schedule would have him treated today. However, he had extra treatment yesterday in order to transfuse and manage his volume status. He has no indications for dialysis today, so we will plan his next treatment on Wednesday and then return to his normal dialysis schedule. Though he does have some increased work of breathing, I do not think this is related to pulmonary edema but more likely related to his high burden of tumor in the lungs and pleura. 2. Electrolytes and acid-base are in target. 3. Anemia is improved following transfusion. I will defer erythropoietic management to his oncologist. His home medications have been continued, although his carvedilol dose has been decreased. We will observe his blood pressure. Certainly, his large dose of minoxidil may contribute to his accumulated pleural effusions. If this turns out to be transudative (unlikely) then a change in his minoxidil dose would be in order. No other medication changes are required from my perspective, with the exception that his Zosyn is dosed for abnormal kidney function, so I will change that. cc: Tevin Pena MD
--- NOTE | 2016-06-27 15:32 | CONSULTATION ---
DATE OF CONSULTATION: 06/27/2016 INDICATION: Elevated troponin and congestive heart failure. HISTORY OF PRESENT ILLNESS: Mr. Arriaga is a 61-year-old black male with a history of metastatic renal carcinoma with apparent new diagnosis of metastasis to the lungs. He apparently presented to Dr. Haq's office today and, due to shortness of breath, was referred to the hospital. Earlier today, he had a thoracentesis performed on the right side and has had much improvement in his shortness of breath. He reports the shortness of breath has been present for around a month, and started around the time he had a lung biopsy performed over in [place]. No fevers, no orthopnea, and no chest pain. He reports compliance with his usual dialysis schedule and he thinks that they have not had any issues getting him down to his dry weight. PAST MEDICAL HISTORY: 1. Significant for metastatic renal cell carcinoma, currently followed by Dr. Taylor Haq. 2. Prostate cancer. 3. End-stage renal disease on hemodialysis via Tuesdays, , and Saturdays. 4. Hypertension. 5. Reflux. SOCIAL HISTORY: No history of tobacco, alcohol, or illicit drugs. FAMILY HISTORY: Significant for hypertension. REVIEW OF SYSTEMS: A 10-system review of systems is negative except for those things mentioned in the HPI. PHYSICAL EXAMINATION: Vital Signs: He is afebrile. His heart rate is 94. Blood pressure 140/86. General: He is in no acute distress. HEENT: Oropharynx is moist. Normal dentition. Eye examination shows pink conjunctivae, white sclerae. Neck: Examination shows no obvious thyromegaly or thyroid tenderness. Cardiovascular: He is in a regular rate and rhythm. He has no obvious murmurs. No S3. He has no lower extremity edema. Chest: Sounds clear with the exception of reduced breath sounds in the right lower 3rd. No increased work of breathing. Abdomen: Soft, nontender, nondistended. No obvious organomegaly. Skin: Warm and dry throughout, without any rashes. Neurologic: Moving all extremities well. Cranial nerves 2-12 are intact, without any sensation deficits. Psychiatric: Alert and oriented, pleasant. Normal mood and affect. PERTINENT DATA: He had a thoracentesis on the right. One liter was drained earlier today. Head CT did not demonstrate any acute findings. Abdomen and pelvis CT was reviewed and showed numerous pulmonary metastases, large loculated pleural effusion on the right, pleural metastases noted. Bilateral nephrectomies as well as a mass in the posterior right lobe of the liver and right nephrectomy bed. He had an echocardiogram demonstrating mild TR, moderate pulmonary hypertension. EF 65-70. Moderate to severe left ventricular hypertrophy. Laboratory data shows white count 4.8, hematocrit 25.4, platelet count 282,000. INR 1.19. Sodium 137, potassium 4.5, BUN 28, creatinine 5. Troponins have been elevated at 0.387, 0.279 most recently. proBNP 24,000. ASSESSMENT: 1. Pleural effusion. 2. Renal cell carcinoma that is metastatic. PLAN: Troponin elevation is likely related to volume overload. He is not having any ischemic- type complaints. I would not recommend ischemia evaluation at this time, given the fact that the patient has fairly significant anemia and ongoing metastatic renal cell carcinoma that is currently being evaluated. If the volume overload is secondary to diastolic heart failure, then the treatment would be treatment of his hypertension as well as further volume removal via dialysis. I believe more likely the pleural effusion was secondary to either pulmonary metastases and/or end-stage renal disease. I will initiate the patient on aspirin. His echocardiogram showed a normal ejection fraction. His electrocardiogram demonstrated what appears to be a right bundle branch block. No evidence of acute ischemic changes on that study. cc: Alok Pelayo MD
[2016-06-27 16:12] LABS: DIFF NEEDED? YES; WBC BF 95072 /cumm
[2016-06-27 16:26] LABS: SPECIMEN PLEURAL FLUID
[2016-06-27 16:30] LABS: MONOS 0 %; POLYS 100 %
[2016-06-27] MEDS: FOLIC ACID 1 MG in NS 50.0 ML IV SCH (19:44)
[2016-06-27] MEDS ORDERED: LASIX PO SCH (21:00)
[2016-06-27] MEDS: SINEQUAN PO SCH (21:13)
[2016-06-27] MEDS: ZOFRAN IV PRN (22:19)
[2016-06-28] MEDS: DUONEB (A & A) INH SCH ×6 (03:37→23:25)
[2016-06-28] MEDS: ZOFRAN IV PRN (04:21)
[2016-06-28 04:52] LABS: ALLEN TEST YES; BE 16.3 mmoll (-3.0-3.0); BLOOD TYPE ARTERIAL; DRAW SITE R RADIAL; METHB 2.4 % (0.0-1.5); O2(CT) 10.2 mL/dL (15.0-23.0); PO2(98.6) 70 mmHg (60-100); SAMPLE BLOOD; SAO2 96.1 % (95.0-100.0); THB 7.8 g/dL (11.5-17.4); pH(98.6) 7.46 (7.35-7.45)
[2016-06-28 04:53] LABS: MODALITY CANNULA; PCO2(98.6) 59 mmHg (35-45)
[2016-06-28] MEDS: ZOSYN 2.25 GM/NS 2.25 GM/50 ML IVPB IV SCH ×3 (05:02→21:50)
[2016-06-28 06:57] LABS: MANUAL DIFF NEEDED? NO
[2016-06-28 07:26] LABS: CALCIUM 9.3 mg/dL (8.8-10.2); POTASSIUM 4.1 mmol/L (3.5-5.1)
[2016-06-28 07:32] LABS: BASO% 0.2 % (0.0-0.8); EOS# 0.09 X1000 (0.0-0.7); EOS% 0.9 % (0.0-10.0); HEMATOCRIT 24.8 % (42.0-52.0); HEMOGLOBIN 7.8 g/dL (14.0-18.0); IMM GRAN# 0.06 X1000 (0.0-0.04); IMM GRAN% 0.6 % (0.0-0.5); LYMPH# 1.47 X1000 (1.2-3.4); LYMPH% 14.3 % (20.5-51.1); MCH 30.4 PG (27-31); MCHC 31.5 g/dL (33-37); MCV 96.5 FL (81-99); MONO# 1.21 X1000 (0.11-0.59); MONO% 11.8 % (1.7-9.3); MPV 9.6 FL (7.4-10.4); NEUT% 72.2 % (42.2-75.2); PLT 277 X1000 (130-400); RBC 2.57 XMIL (4.7-6.1)
[2016-06-28] MEDS: NEXIUM PO SCH (08:39)
[2016-06-28] MEDS: LONITEN PO SCH ×2 (08:40→20:42)
[2016-06-28] MEDS: CATAPRES PO SCH ×2 (08:41→20:42)
[2016-06-28] MEDS: COREG PO SCH ×2 (08:41→20:42)
[2016-06-28] MEDS: SINEQUAN PO SCH ×2 (08:41→20:41)
[2016-06-28] MEDS: ASPIRIN PO SCH (08:46)
[2016-06-28] MEDS ORDERED: LACTULOSE PO PRN (10:05)
--- NOTE | 2016-06-28 10:36 | PROGRESS NOTE ---
DATE: 06/28/2016 SUBJECTIVE: Today, Mr. Arriaga referred to be feeling a little down, more short of breath, and he has an extremely distended abdomen. OBJECTIVE: Vital Signs: Blood pressure is 126/74, pulse is 90, respirations are 16, temperature is 97.8 degrees. General Examination: Mr. Arriaga is a 61-year-old, male. He is in bed, in mild distress. HEENT: Mucosa is pink and moist. Anicteric and acyanotic. Neck: Supple. Chest: Air entry is bilaterally reduced. There are bilateral posterior crackles. Cardiovascular: Regular rate and rhythm. Abdomen: Soft. There are old surgical scars on the anterior abdominal wall. Extremities: Maybe 1+ pedal edema. Neck: There is also mild JVD. RADIO STATION MANAGER: Patient is alert and oriented. Laboratory Data: WBC is 10.29, hemoglobin is 7.8, platelet count is 277,000. Chemistry: Sodium is 136, potassium is 4.1, chloride is 90, bicarb is 34, BUN is 48, creatinine is 6.8. An ultrasound-guided thoracentesis which was done yesterday to the right pleural effusion was successful and 1000 mL of fluid was removed. The lab studies on the pleural fluid shows WBC of 9572 and 100% was segments. Glucose was just 7. ASSESSMENT: 1. Acute hypoxemic respiratory failure. 2. Large right pleural effusion, status post drain. One liter of fluid was drained yesterday by interventional radiology. The analysis is predominantly neutrophilic, consistent with a pleural exudate which I think it is due to a parapneumonic effusion, glucose is 7 which is consistent with a complicated pleural effusion. Will continue with antibiotic and await pulmonary recommendations today 3. Endstage renal disease. Patient is on hemodialysis. 4. Macrocytic anemia with very low folate level. Patient is status post 2 packed red blood cell transfusion. Hemoglobin and hematocrit are relatively stable. 5. Protein calorie malnutrition noted. 6. 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 7. Abdominal distention, likely from constipation. We will do a KUB to follow up on that to make sure there is not any mechanical obstruction. 8. History of bilateral renal cell cancer, status post bilateral nephrectomy. The CT scan of the lungs shows multiple nodules concerning for lung metastases which I think is also driving some of his shortness of breath. cc: Jone Carrasco MD MTDD
--- NOTE | 2016-06-28 10:50 | Diag Imaging Result Document ---
PROCEDURE NAME: CHEST-1 VIEW - 06/28/2016 PORTABLE CHEST: COMPARISON: 06/27/2016. FINDINGS: Stable significant cardiomegaly and pulmonary vascular congestion. Lung volumes are lower with apparent accentuation of bronchovascular crowding, versus worsening of the central infiltrates/edema. IMPRESSION: 1. Significant worsening from prior. 2. Lower lung volumes. 3. Increasing crowding versus worsening edema centrally.
--- NOTE | 2016-06-28 13:01 | Diag Imaging Result Document ---
PROCEDURE NAME: KUB ABDOMEN - 06/28/2016 X-RAY ABDOMEN, 06/28/2016: COMPARISON: CT from 06/26/2016. FINDINGS: There are prostatectomy clips. No bowel obstruction. IMPRESSION: No obvious abnormality.
--- NOTE | 2016-06-28 13:47 | PROGRESS NOTE ---
DATE: 06/28/2016 SUBJECTIVE: Mr. Arriaga reports no shortness of breath. He is having a little bit of abdominal discomfort that he attributes to constipation. PHYSICAL EXAMINATION: Vital signs: He is afebrile. Heart rate of 86, blood pressure 108/62. General: He is in no acute distress. Cardiovascular: He sounds to be in a regular rate and rhythm. No obvious murmurs. He has no S3. No real lower extremity edema. Chest: Has some mild coarse breath sounds. Decreased in the right lower 1/3 to 1/2. No increased work of breathing. Abdomen: Soft, nontender. Good bowel sounds. Skin Exam: Warm and dry throughout. PERTINENT DATA: White count 10.2, hematocrit 24.8, platelet count 277,000. His sodium is 136, potassium 4.1, his BUN is 45, creatinine 6.8. ASSESSMENT: 1. Metastatic renal cell carcinoma. 2. End-stage renal disease. 3. Elevated troponin. PLAN: Chest x-ray today seems to demonstrate worsening from previous lower lung volumes noted, suggestion of worsening edema centrally. If the patient does in fact have some diastolic heart failure present then management will be via hemodialysis with fluid removal. His blood pressure does seem to be controlled with some occasional low systolics in the 80s to 90s. He is still pending further evaluations regarding definitive management of his renal cell carcinoma. His troponin elevation is noted. It is likely somewhat in part due to his issues with renal insufficiency. Presently, he is not having any ischemic-type symptoms. His electrocardiogram was unremarkable for any ischemic changes. At this point, I would not pursue any invasive management from a cardiac standpoint. I would continue him on aspirin presently. Notably, he did have an echocardiogram showing a preserved EF with no evidence of segmental wall motion abnormalities. cc: Alok Pelayo MD
[2016-06-28] MEDS ORDERED: DULCOLAX PR PRN (14:59)
[2016-06-28] MEDS ORDERED: TUMS EXTRA STRENGTH PO ONE (15:52)
--- NOTE | 2016-06-28 17:31 | PROGRESS NOTE ---
DATE: 06/28/2016 CHIEF COMPLAINT: Fluid is reaccumulating. HISTORY OF PRESENT ILLNESS: Mr. Arriaga had a fairly uneventful night. PHYSICAL EXAMINATION: Vitals: Temperature 97.6 degrees, pulse 86, blood pressure 88/65, respiratory rate 18, O2 saturation 95% on 3 L. General: This is an obese man with oxygen via nasal cannula, in acute distress. Cardiovascular: Regular rate and rhythm. Normal S1, S2. No murmurs, rubs, or gallops. Pulmonary: Decreased breath sounds at the right lung base. No wheezes, rales, or rhonchi. Gastrointestinal: Abdomen is obese but soft, nontender, nondistended with normoactive bowel sounds. Extremities: No clubbing or cyanosis. Trace bilateral ankle edema. LABORATORY DATA: White count 10.3, hemoglobin 7.8, platelet count 277,000. ABG pH 7.46, pCO2 59,000, pO2 70, FiO2 32%. ProBNP 21,697. Pleural fluid 95,000 white blood cells, 100% poly- nuclear with a glucose of 7 and LDH greater than 2500. Chest x-ray shows cardiomegaly, pulmonary vascular congestion, lower lung volume, with increasing chronic versus worsening edema centrally. 1. Metastatic renal cell carcinoma: Patient has not been treated as of yet for his renal cell carcinoma. Biopsy-proven recurrence in the renal fossa. He also has suspected bilateral pulmonary metastatic disease with small pulmonary nodules that were biopsy negative previously. Plan was to start patient on some Zolpidem once he is stable. I am concerned that this pleural effusion is malignant. I will await further workup. 2. Pleural effusion: He appears to have some reaccumulation of fluid. He will receive dialysis tomorrow as scheduled. Pleural fluid cytology pending, as is gram stain and culture. Continue empiric antibiotic dosing at this time. 3. Anemia: He will receive a transfusion on dialysis tomorrow. I am concerned that he has continued to have blood loss, as he had a blood transfusion 2 weeks ago and his blood counts are completely back down to where he was prior to the transfusion. cc: Taylor Haq MD
[2016-06-28] MEDS: FOLIC ACID 1 MG in NS 50.0 ML IV SCH (19:22)
[2016-06-29] MEDS: DUONEB (A & A) INH SCH ×6 (03:37→23:07)
[2016-06-29 04:31] LABS: MANUAL DIFF NEEDED? NO
[2016-06-29 04:34] LABS: ALLEN TEST YES; BE 11.3 mmoll (-3.0-3.0); BLOOD TYPE ARTERIAL; DRAW SITE R RADIAL; METHB 1.8 % (0.0-1.5); O2(CT) 9.6 mL/dL (15.0-23.0); PO2(98.6) 73 mmHg (60-100); SAMPLE BLOOD; SAO2 97.6 % (95.0-100.0); THB 7.2 g/dL (11.5-17.4); pH(98.6) 7.42 (7.35-7.45)
[2016-06-29 04:35] LABS: MODALITY CANNULA; PCO2(98.6) 57 mmHg (35-45)
[2016-06-29 04:50] LABS: BASO% 0.1 % (0.0-0.8); EOS# 0.16 X1000 (0.0-0.7); EOS% 1.6 % (0.0-10.0); HEMATOCRIT 23.5 % (42.0-52.0); HEMOGLOBIN 7.4 g/dL (14.0-18.0); IMM GRAN# 0.04 X1000 (0.0-0.04); IMM GRAN% 0.4 % (0.0-0.5); LYMPH# 1.27 X1000 (1.2-3.4); LYMPH% 12.9 % (20.5-51.1); MCH 30.5 PG (27-31); MCHC 31.5 g/dL (33-37); MCV 96.7 FL (81-99); MONO# 1.24 X1000 (0.11-0.59); MONO% 12.6 % (1.7-9.3); MPV 9.2 FL (7.4-10.4); NEUT% 72.4 % (42.2-75.2); PLT 255 X1000 (130-400); RBC 2.43 XMIL (4.7-6.1)
[2016-06-29] MEDS: ZOSYN 2.25 GM/NS 2.25 GM/50 ML IVPB IV SCH (05:00)
[2016-06-29 05:34] LABS: CALCIUM 9.1 mg/dL (8.8-10.2); MAGNESIUM 2.1 mg/dL (1.5-2.7); POTASSIUM 4.3 mmol/L (3.5-5.1)
--- NOTE | 2016-06-29 08:18 | Diag Imaging Result Document ---
PROCEDURE NAME: CHEST-1 VIEW - 06/29/2016 AP PORTABLE CHEST, 06/29/2016 AT 0500 HOURS: FINDINGS: There are bilateral pleural effusions. There is atelectasis or pneumonia in both lower lobes and the right middle lobe and lingula. There is perihilar opacity in the upper lobes. There has been considerable worsening in the lung bases since 06/27/2016. IMPRESSION: Worsening pulmonary edema and pleural effusions.
[2016-06-29 08:50] LABS: RETIC% 2.41 % (0.8-2.1); RETIC-HE 36.7 PG (28.2-36.6)
[2016-06-29] MEDS: SINEQUAN PO SCH ×2 (09:46→20:04)
[2016-06-29] MEDS: ZANTAC PO SCH ×2 (09:47→20:04)
[2016-06-29] MEDS: COREG PO SCH ×2 (09:47→20:04)
[2016-06-29] MEDS: NEXIUM PO SCH (09:47)
[2016-06-29] MEDS: ASPIRIN PO SCH (09:48)
[2016-06-29] MEDS: MIRALAX PO SCH (09:48)
[2016-06-29] MEDS: CATAPRES PO SCH ×2 (09:50→20:04)
[2016-06-29] MEDS: LONITEN PO SCH ×2 (09:51→20:04)
[2016-06-29] MEDS ORDERED: NS 2,000 ML MISC PRN (10:01)
[2016-06-29] MEDS ORDERED: TIGHT: 0.2 ML/HR MISC PRN (10:01)
[2016-06-29] MEDS ORDERED: HEPARIN IV PRN (10:01)
--- NOTE | 2016-06-29 10:08 | PROGRESS NOTE ---
DATE: 06/29/2016 SUBJECTIVE: The patient is resting in bed. He states he has continued to have significant shortness of breath but no pain otherwise. OBJECTIVE: Vital Signs: Temperature 98.3 degrees, pulse 90, respiratory rate 18, blood pressure 110/66. Intake 980 mL, output 0. Physical Examination: General: This is a middle-aged gentleman resting in bed. He has some increased work of breathing. HEENT: Normocephalic and atraumatic. Oral mucosa moist. Neck: Supple. He has positive JVD in a reclined position. Cardiovascular: Reveals a regular rate and rhythm with a gallop. No murmur appreciated. Pulmonary: He has mild increased work of breathing. Some expiratory wheeze. No rhonchi noted. He has some decreased breath sounds to the bases. Abdomen: Soft, round, positive bowel sounds. : Not inspected. He has hemodialysis assist. Extremities: He has no pretibial edema. No clubbing or cyanosis. He is moving all extremities. Integumentary: Skin is warm, dry with no rash or lesion. Lab Data: WBC of 9.8, hemoglobin 7.4. Sodium 136, potassium 4.3, CO2 29, BUN 51, creatinine 8.3. ABGs, pH of 7.4, PCO2 of 52, PaO2 of 73, bicarb of 33.7, a base excess 11.3 on 2 L nasal cannula. Chest x-ray shows increased pulmonary edema. ASSESSMENT AND PLAN: 1. End-stage renal disease. We will are dialyzing him today on his regular schedule. We will plan to try to pull his fluid down to dry weight, 2 K bath, routine 4-hour treatment. 2. Anemia. He is on EPO through the oncologist. His hemoglobin is still around 7. We will give him 1 unit while he is on dialysis to avoid further fluid complications secondary to his pulmonary edema. 3. Fluid volume. Again, he continues to have pulmonary edema shown on chest x- ray and some increased work of breathing. Plan to dialyze. 4. Electrolytes, acid-base balance. These are acceptable. Seen, data reviewed, discussed with Delia White on 06/29/16. I agree with the above assessment and plan of care. rg Dictated by GRICELDA Leavitt for Tevin Pena MD cc: Tevin Pena MD [id number]
--- NOTE | 2016-06-29 11:06 | PROGRESS NOTE ---
DATE: 06/29/2016 SUBJECTIVE: Today, Mr. Arriaga refers to be doing okay. Denies of any chest pain or shortness of breath but he said he cannot take very deep breaths. OBJECTIVE: Vital Signs: Blood pressure is 126/78, pulse is 83, respirations are 24, temperature is 97.8 degrees. General Examination: Mr. Arriaga is a 61-year-old, male. He is in bed. He does not seem to be in any major distress. HEENT: Mucosa is pink and moist. Anicteric and acyanotic. Neck: Supple. Chest: Air entry is bilaterally reduced. There are diffuse bilateral crepitations and some fainting end expiratory wheezing. Cardiovascular: Regular rate and rhythm. No murmurs, no rubs. Abdomen: Soft. It is distended but nontender. Bowel sounds are present. There is an old surgical scar on the anterior abdominal wall. Extremities: Maybe 1+ pedal edema. COTTON PICKER: Patient is alert and oriented. There is no focal neurological deficit. Laboratory Data: WBCs 9.82, hemoglobin is 7.4, platelet count of 255,000, reticulocyte count is 2.41. Chemistry is reviewed, consistent with end-stage renal disease. A chest x-ray which was done early this morning shows worsening pulmonary edema and pleural effusions. ASSESSMENT: 1. Acute hypoxemic respiratory failure. The etiology is multifactorial including pleural effusions, pulmonary edema, and atelectasis/pneumonia. 2. Large right pleural effusion, status post thoracentesis. A liter was drained 3 days ago. So far, it is predominantly neutrophilic and this is kind of concerning for a parapneumonic effusion. The patient is currently on antibiotics, Zosyn and vancomycin. However, we will change the Zosyn to meropenem to cover for extended-spectrum B-lactamase. 3. End-stage renal disease. Patient is on hemodialysis. 4. Fluid overload. Chest x-ray this morning continues to show worsening of the pulmonary edema and pleural effusions which I think is probably due to his dialysis needs. Patient is being evaluated for dialysis today. 5. Macrocytic anemia with very low folate level. Patient's hemoglobin continues to drop. We will do a fecal occult blood test to rule out any gastrointestinal blood loss. The patient is getting a unit of blood during dialysis today. His absolute reticulocyte count is 1.2 which is low and his reticulocyte count production index is 0.6 which is extremely low, consistent with hypoproliferative bone marrow. I think as we replace the folate and other deficiencies, this should improve. Hematology/oncology is on board and we will follow up with further recommendations from them. 6. Protein calorie malnutrition. We will continue diet supplements. 7. 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 8. Abdominal distention due to constipation. Patient was given some therapy. He has been able to have a bowel movement. 9. History of bilateral renal cell carcinoma, status post bilateral nephrectomy. A CT scan on admission continues to show a recurrence of the mass at the right renal foci and there is metastasis of this into the lungs. Hematology/oncology is on board. There has been a discussion of targeted immunotherapy for that. We will follow up with hematology/oncology. PLAN: In general, Mr. Arriaga clinically seems to be stable. However, the lungs continue to be retaining more fluid which I think dialysis will address that. There is a pleural fluid which was sent to the lab on the . The culture and Gram stain were ordered yesterday. However, this was accidentally canceled by one of the staff in the lab. I spoke with the lab technician, Dillan today and they are going to process the sample, and get a Gram stain and culture for us. Cytology is still pending. I have changed the Zosyn to meropenem to cover for possible ESBL since patient was in the hospital recently. We will continue with vancomycin. We will do FOBT to look for other sources of blood loss for this anemia. cc: Jone Carrasco MD [facility]
[2016-06-29] MEDS ORDERED: XANAX PO PRN (12:04)
[2016-06-29] MEDS ORDERED: HEPARIN ONE (12:25)
[2016-06-29] MEDS ORDERED: NS 2,000 ML ONE (12:25)
[2016-06-29] MEDS: MERREM 500 MG in NS 50 ML IV SCH (17:05)
[2016-06-29] MEDS: VANCOMYCIN 1 GM/NS 1 GM/250 ML IVPB IV SCH (17:59)
[2016-06-29] MEDS: PHOSLO PO SCH (18:42)
[2016-06-29] MEDS: FOLIC ACID 1 MG in NS 50.0 ML IV SCH (19:26)
[2016-06-29] MEDS: XANAX PO SCH (20:04)
[2016-06-30] MEDS: MERREM 500 MG in NS 50 ML IV SCH ×3 (01:30→17:37)
[2016-06-30] MEDS ORDERED: NORCO-7.5 PO PRN (02:21)
[2016-06-30] MEDS: DUONEB (A & A) INH SCH ×6 (03:49→23:15)
[2016-06-30 04:41] LABS: ALLEN TEST YES; BE 9.7 mmoll (-3.0-3.0); BLOOD TYPE ARTERIAL; DRAW SITE R RADIAL; METHB 1.8 % (0.0-1.5); O2(CT) 11.1 mL/dL (15.0-23.0); PO2(98.6) 96 mmHg (60-100); SAMPLE BLOOD; THB 8.1 g/dL (11.5-17.4); pH(98.6) 7.43 (7.35-7.45)
[2016-06-30 04:42] LABS: MODALITY CANNULA
[2016-06-30 04:43] LABS: PCO2(98.6) 53 mmHg (35-45)
[2016-06-30 04:55] LABS: MANUAL DIFF NEEDED? NO
[2016-06-30 05:08] LABS: BASO% 0.1 % (0.0-0.8); EOS# 0.14 X1000 (0.0-0.7); EOS% 1.5 % (0.0-10.0); HEMATOCRIT 24.2 % (42.0-52.0); HEMOGLOBIN 7.8 g/dL (14.0-18.0); IMM GRAN# 0.04 X1000 (0.0-0.04); IMM GRAN% 0.4 % (0.0-0.5); LYMPH# 1.18 X1000 (1.2-3.4); LYMPH% 12.8 % (20.5-51.1); MCH 30.8 PG (27-31); MCHC 32.2 g/dL (33-37); MCV 95.7 FL (81-99); MONO# 1.19 X1000 (0.11-0.59); MONO% 12.9 % (1.7-9.3); NEUT% 72.3 % (42.2-75.2); PLT 223 X1000 (130-400); RBC 2.53 XMIL (4.7-6.1)
[2016-06-30 05:26] LABS: CALCIUM 8.5 mg/dL (8.8-10.2); POTASSIUM 3.9 mmol/L (3.5-5.1)
--- NOTE | 2016-06-30 07:36 | Diag Imaging Result Document ---
PROCEDURE NAME: CHEST-1 VIEW - 06/30/2016 PORTABLE CHEST X-RAY: COMPARISON: 06/29/2016. FINDINGS: Stable cardiomegaly and pulmonary vascular congestion. Stable bibasilar airspace opacities and/or effusions. There are numerous stable bilateral pulmonary nodules. IMPRESSION: No change from prior.
[2016-06-30] MEDS: MIRALAX PO SCH (08:04)
[2016-06-30] MEDS: ZANTAC PO SCH ×2 (08:04→22:21)
[2016-06-30] MEDS: ASPIRIN PO SCH (08:04)
[2016-06-30] MEDS: PHOSLO PO SCH ×3 (08:04→17:37)
[2016-06-30] MEDS: SINEQUAN PO SCH ×2 (08:04→22:20)
[2016-06-30] MEDS: NEXIUM PO SCH (08:04)
[2016-06-30] MEDS: COREG PO SCH ×2 (08:05→22:21)
[2016-06-30] MEDS: CATAPRES PO SCH ×2 (08:05→22:21)
[2016-06-30] MEDS: LONITEN PO SCH ×2 (08:05→22:39)
--- NOTE | 2016-06-30 09:10 | PROGRESS NOTE ---
DATE: 06/30/2016 SUBJECTIVE: He states his shortness of breath is improved. No nausea or vomiting. OBJECTIVE: Vital Signs: Blood pressure 94/72, heart rate 83, respiration 18, afebrile. Intake 870 mL; output 800 mL. General: On physical exam, no acute distress. Skin: Warm and dry. Eyes: Conjunctivae are pink. Neck: Neck veins are not distended. Heart: Regular with a murmur. Lungs: Have equal breath sounds. No crackles. Abdomen: Soft, nontender. Bowel sounds present. Extremities: Have no edema, clubbing, or cyanosis. LABORATORY DATA: Sodium 138, potassium 3.9, chloride 97, bicarbonate 31, BUN 33, creatinine 6.4, hemoglobin 7.8. IMPRESSION: 1. End-stage kidney disease. He will have his routine hemodialysis tomorrow. 2. Anemia. His hemoglobin is stable, although it remains low. Dr. Haq is following him, and I will defer management to her. cc: Tevin Pena MD
[2016-06-30] MEDS ORDERED: FLONASE NAS PRN (09:16)
[2016-06-30] MEDS ORDERED: LONITEN PO SCH (09:16)
--- NOTE | 2016-06-30 09:56 | PROGRESS NOTE ---
DATE: 06/30/2016 SUBJECTIVE: Patient reports feeling fine. Denies any shortness of breath or chest pain. Denies any fever or chills. OBJECTIVE: Vital Signs: Temperature 97.7 degrees, heart rate 83, respiratory rate 18, blood pressure 94/72, O2 saturation 100% on 3L nasal cannula. General Examination: This is a 61-year- old male, lying in bed in no acute distress. HEENT: Head is normocephalic, atraumatic. Anicteric sclerae and pale conjunctivae. Mucous membranes moist. Neck: Supple. No JVD noted. No carotid bruits. No lymphadenopathy. No thyromegaly. Cardiovascular: S1 and S2 heard. No murmurs, gallops, or rubs. Regular rate and rhythm. Respiratory: There are some bibasilar crepitations but patient is not using any accessory muscles or having work of breathing. Abdomen: Soft, a little bit distended, but nontender to palpation. Bowel sounds present. No organomegaly. Old surgical scar in the anterior abdominal wall. Extremities: No pedal edema. No cyanosis. No clubbing. Peripheral pulses present in both legs. Neurological: Patient is alert and oriented x3. Able to move 4 extremities. Cranial nerves 2-12 grossly normal. LABORATORY DATA: White cell count 9.22, hemoglobin 7.8, hematocrit 24.2, platelets 223,000. ABG shows pH 7.43, pCO2 of 53, PO2 of 96. The BMP is unremarkable except creatinine is 6.4 and BUN 3.3. ASSESSMENT AND PLAN: 1. Acute hypoxemic respiratory failure. This condition is multifactorial, including pleural effusion, pulmonary edema, and pneumonia. Patient had a right pleural effusion that was drained 4 days ago and we removed approximately 1 L of pleural fluid. The laboratory showed that this is exudate. Currently, this patient is on vancomycin and also meropenem. White cell count is back to normal. Patient is not complaining of any shortness of breath, so I think we can wean off of oxygen. We will see how this patient does. 2. End-stage renal disease, on hemodialysis. Dr. Pena is following this patient. 3. Fluid overload. Today the x-ray showed no changes and actually they described stable cardiomegaly and pulmonary vascular congestion. At this point, we are going to continue with dialysis. 4. Microcytic anemia with very low folate level. Hemoglobin has increased from 7.4 to 7.8 yesterday. There are no signs of overt bleeding. At this point, we will follow recommendations from Hematology/Oncology. Patient has received so far 2 units of blood transfused. We will continue checking CBC daily. 5. Protein-calorie malnutrition. We will continue with diet supplements. 6. 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 Patient is stable. Patient is not complaining of any chest pain or difficulty breathing. 7. Abdominal distention due to constipation. Patient having bowel movements. 8. History of bilateral renal cell carcinoma status post bilateral nephrectomy. CT scan on the admission, as we mentioned before, shows recurrence of the mass in the right renal fossa and there is metastasis to lungs. Hematology/Oncology is on board and we will continue following their recommendations. Gram-stain from pleural effusion is negative as well as culture. 9. Overall, this patient is doing good. His oxygen need is 3L, so I think we can transfer him out of the unit today. cc: Jeremy Strong MD
[2016-06-30] MEDS: FOLIC ACID 1 MG in NS 50.0 ML IV SCH (19:00)
[2016-06-30] MEDS ORDERED: NORVASC PO SCH (21:00)
[2016-06-30] MEDS: XANAX PO SCH (22:21)
[2016-07-01] MEDS: MERREM 500 MG in NS 50 ML IV SCH ×3 (02:11→17:39)
[2016-07-01] MEDS: DUONEB (A & A) INH SCH ×4 (03:43→16:15)
[2016-07-01] MEDS ORDERED: NS 2,000 ML ONE (07:17)
[2016-07-01] MEDS ORDERED: HEPARIN ONE (07:17)
[2016-07-01 07:21] LABS: CALCIUM 8.8 mg/dL (8.8-10.2); POTASSIUM 4.6 mmol/L (3.5-5.1)
[2016-07-01] MEDS ORDERED: NS 2,000 ML MISC PRN (07:32)
[2016-07-01] MEDS ORDERED: HEPARIN IV PRN (07:32)
[2016-07-01] MEDS ORDERED: TIGHT: 0.2 ML/HR MISC PRN (07:32)
[2016-07-01] MEDS: MIRALAX PO SCH (08:34)
[2016-07-01] MEDS: PHOSLO PO SCH ×3 (08:35→17:16)
[2016-07-01] MEDS: LONITEN PO SCH ×2 (09:00→15:28)
[2016-07-01] MEDS ORDERED: ZOLOFT PO SCH (09:00)
[2016-07-01] MEDS ORDERED: THERA M PLUS PO SCH (09:00)
[2016-07-01] MEDS ORDERED: LYRICA PO SCH (09:00)
--- NOTE | 2016-07-01 10:08 | PROGRESS NOTE ---
DATE: 07/01/2016 SUBJECTIVE: Patient currently resting in bed asleep. He awakens easily to verbal stimuli. He denies any chest pain or shortness of breath this morning. He is able to lie flat in bed. OBJECTIVE: Vital Signs: Temperature 97.6 degrees, pulse 80, respiratory rate 23, blood pressure 111/63. Intake 200 mL; output not measured. General: Middle-aged gentleman resting in bed in no acute distress. He awakens easily and is alert and oriented. HEENT: Normocephalic, atraumatic. Oral mucosa is moist. Neck: Supple. There is no JVD in a reclined position. Cardiovascular: Regular rate and rhythm. Systolic murmur noted. Pulmonary: He has equal excursion. He is clear bilaterally. He has no increased work of breathing today. He remains on 2 L nasal cannula. Abdomen: Soft with positive bowel sounds. : Not inspected with hemodialysis assist. Extremities: There is no clubbing, cyanosis or edema. He is moving all extremities. Integumentary: Skin is dry, warm. LAB DATA: Sodium 138, potassium 4.6, CO2 29, BUN 44, creatinine 7.9, calcium 8.8. ASSESSMENT AND PLAN: 1. End-stage renal disease management. Today is his routine dialysis day. We will plan to dialyze him on a 2 K bath/ultrafiltration to dry weight/four hour treatment. 2. Anemia followed by primary, Dr. Haq. We will defer his anemia management to them. 3. Electrolytes, acid-base balance. These are in target. 4. Fluid volume. He is not overloaded. 5. Blood pressure controlled. Seen, data reviewed, discussed with Delia White on 07/01/16. I agree with the above assessment and plan of care. rg Dictated by GRICELDA Leavitt for Tevin Pena MD cc: Tevin Pena MD [facility]
[2016-07-01] MEDS: SINEQUAN PO SCH (14:17)
[2016-07-01] MEDS: COREG PO SCH (14:17)
[2016-07-01] MEDS: NEXIUM PO SCH (14:17)
[2016-07-01] MEDS: ZANTAC PO SCH (14:18)
[2016-07-01] MEDS: CATAPRES PO SCH (14:18)
[2016-07-01] MEDS: ASPIRIN PO SCH (14:18)
[2016-07-01] MEDS: VANCOMYCIN 1 GM/NS 1 GM/250 ML IVPB IV SCH (15:27)
[2016-07-01 17:36] VITALS: BP 150/48
--- NOTE | 2016-07-02 07:53 | DISCHARGE SUMMARY ---
ADMISSION DATE: 06/26/2016 DISCHARGE DATE: 07/01/2016 CONSULTATION: 1. Dr. Taylor Haq of Hematology/Oncology. 2. Dr. Pena with Nephrology. 3. Dr. Romero with Pulmonology. 4. Dr. Alok Pelayo with Cardiology. PERTINENT PROCEDURES: 1. Abdomen and pelvis CT showed bilateral nephrectomies and mass in the posterior right lobe of the liver and right nephrectomy band. 2. Echocardiogram showed an EF of 65-70%. 3. Head CT showed microvascular ischemic changes. 4. Ultrasound-guided thoracentesis with 1 L aspirated fluids. DISCHARGE DIAGNOSES: 1. Acute hypoxemic respiratory failure resolved secondary to a right pleural effusion. 2. Status post paracentesis and 1 L fluid was removed. 3. End-stage renal disease on hemodialysis. Followed by Dr. Pena. 4. Fluid volume overload secondary to #2. 5. Microcytic anemia with very low folate. Following recommendations for hematology oncology, patient is status post 2 units of packed red blood cells. 6. Protein calorie malnutrition. Continue with diet supplements. 7. Moderate to severe concentric hypertrophic cardiomyopathy secondary to hypertensive heart disease, stable. 8. Abdominal distention secondary to constipation, resolving. 9. Bilateral renal cell carcinoma status post bilateral nephrectomy. A CT scan showed recurrence of the mass in the right renal fossa and metastasis to the lungs. Hematology oncology is on board. Continue to follow their recommendations. HOSPITAL COURSE: Mr. Arriaga is an unfortunate 61-year-old, -[place] male with a history of metastatic renal cell carcinoma status post bilateral nephrectomy with newly diagnosis metastasis to the lungs. He has also had a history of prostate cancer and is on hemodialysis followed by Dr. Pena. Over the past 3 days prior to admission, patient became lethargic per the 's report. Had increased labored breathing. A CT of the chest and abdomen and pelvis revealed numerous pulmonary metastases. There was also a large loculated pleural collection. Abdomen showed bilateral nephrectomies and a mass in the posterior right lobe of the liver and the right nephrectomy bed. Laboratory revealed a fairly profound microcytic anemia, hypercapnic respiratory failure, troponin elevation as well as proBNP elevation. Patient was admitted to the ICU with multiple subspecialties. He underwent an ultrasound-guided thoracentesis where 1 L of fluid was removed. Patient was kept on his normal hemodialysis by Dr. Pena. Pulmonology agreed with supplemental O2, and following ABGs cardiology felt that the troponin elevation was related to his volume overload. He does not have any ischemic type complaints, would not recommend any ischemia evaluation given the fact that the patient has a fairly significant anemia and ongoing metastatic renal cell carcinoma that was currently being evaluated. The patient was initiated on aspirin and checked an echocardiogram and his EKG demonstrated what appeared to be a right bundle branch block. No evidence of acute ischemia on his EKG. Dr. Taylor Haq assessed the patient. He has not yet been treated for his renal cell carcinoma, and also suspected bilateral pulmonary metastatic disease. The plan is to start him on zolpidem once he is stable, and was concerned that the pleural effusion was malignant, and in reference to his anemia, continue with transfusions during dialysis. The patient was able to move out of the ICU. His O2 was weaned back down to his normal home O2. He was continued to stay on his regular scheduled dialysis. Again he was status post 2 units of PRBC's. He did have a bout of abdominal distention as well as constipation. He was put on a bowel regimen. This is improving. Patient is receiving his hemodialysis today. His electrolytes and acid base have remained on target. He was not in any more fluid volume overload. His blood pressure is controlled. Patient is going to be discharged after his hemodialysis. PHYSICAL EXAMINATION: Via signs: Temperature 97.6 degrees, heart rate 80, respirations 23, blood pressure 111/63, O2 is 97% on 3 L nasal cannula. DISCHARGE DIET: Renal with Nepro shakes. DISCHARGE MEDICATION: 1. Zyloprim 200 mg p.o. daily. 2. Xanax 0.5 mg p.o. b.i.d. 3. PhosLo 2 mg p.o. t.i.d. 4. Coreg 12.5 mg p.o. b.i.d. 5. Catapres 0.1 mg p.o. b.i.d. 6. Sinequan 25 mg p.o. b.i.d. 7. Nexium 40 mg p.o. daily. 8. Flonase 1 spray nasally daily. 9. tablet 1 tab p.o. daily. 10. Jackson 7.5/325 1 each p.o. q.4 hours to 6 hours p.r.n. 11. Levaquin 250 mg p.o. daily. 12. Lidopril XR cream 1 each topical was ordered. 13. Minoxidil 2.5 mg p.o. b.i.d. 14. Cetirizine 5 mg p.o. daily. 15. Zoloft 50 mg p.o. daily. 16. Sodium bicarb 1300 mg p.o. b.i.d. FOLLOW UP: Patient is being discharged home with home health. Patient has declined going to rehab. The patient will follow up with Dr. Taylor Haq in 1 week and to continue on his regular scheduled dialysis. Patient can return to the ED for any worsening of symptoms. DISCHARGE TIME: Greater than 30 minutes. Dictated by GRICELDA Hernandez for Jeremy Strong MD cc: Jeremy Strong MD
== END 2016-07-01 18:10 | disposition home health service (06) ==
LOC: ED 09:39 → SUATTDRO 14:25 → EDIPHOLD 14:25 → ICU 16:25 → 3N 06-30 11:22
PROVIDERS: ATTEND Internal Medicine